=== PATIENT | male | born 1965 ===

== ENCOUNTER → 2025-01-03 | Outpatient (REF) | payer BC ==
[~2025-01-03] MED LIST: LIDOCAINE VISC 2% SOLN 15 ML UDC ONE
== END ==
LOC: WCC 10:29
PROVIDERS: ATTEND Nurse Practitioner Family
DX: I87.312 Chronic venous hypertension (idiopathic) with ulcer of left lower extremity (principal); L97.828 Non-pressure chronic ulcer of other part of left lower leg with other specified severity; R60.0 Localized edema